=== PATIENT | male | born 1935 | race Caucasian/White ===

== ENCOUNTER 2018-08-27 12:14 | Day surgery (SDC) | payer MEDICARE, MEDICAID ==
[~2018-08-27] VITALS: Ht 170.2 cm; Wt 80.0 kg
[2018-08-27] MEDS ORDERED: LACTATED RINGERS 1,000 ML IV SCH (12:58)
[2018-08-27] MEDS ORDERED: RIVA10TA2 PO (13:07)
[2018-08-27] MEDS ORDERED: METROPOLOL PO (13:07)
[2018-08-27] MEDS ORDERED: FERR324T5 PO (13:07)
[2018-08-27] MEDS ORDERED: ATOR20TA86 PO (13:07)
[2018-08-27] MEDS ORDERED: TAMS-11 PO (13:07)
[2018-08-27] MEDS ORDERED: AMLO10TA8 PO (13:07)
[2018-08-27] MEDS ORDERED: B12/1TAB3 PO (13:07)
[2018-08-27] MEDS ORDERED: LOSA100T14 PO (13:07)
[2018-08-27 13:08] VITALS: BP 135/72
[2018-08-27 13:44] LABS: ANION GAP 9 mmol/L (5-15); CALCIUM 8.3 mg/dL (8.5-10.1); CHLORIDE 109 mmol/L (98-107); CREATININE 1.03 mg/dL (0.7-1.3)
[2018-08-27 13:52] LABS: MEAN CORPUSCULAR HEMOGLOBIN 20.3 pg (27.5-34.5); MEAN CORPUSCULAR VOLUME 68.3 fL (81-97); MEAN PLATELET VOLUME 8.9 fL (7.4-10.4); PLATELET COUNT 171 x10^3/uL (130-400); RED BLOOD COUNT 4.08 x10^6/uL (4.38-5.82); RED CELL DISTRIBUTION WIDTH 26.7 % (9.4-14.8)
[2018-08-27 13:56] LABS: MEAN CORPUSCULAR HGB CONC 29.8 g/dL (33.2-36.2)
[2018-08-27 13:58] LABS: BASOPHILS # (AUTO) 0.02 x10^3/uL (0-0.1); BASOPHILS % (AUTO) 0 % (0-1); EOSINOPHILS # (AUTO) 0.41 x10^3/uL (0-0.4); EOSINOPHILS % (AUTO) 6 % (1-7); LYMPHOCYTES # (AUTO) 1.04 x10^3/uL (1-3.4); LYMPHOCYTES % (AUTO) 16 % (22-44); MD MORPH REVIEW ONLY; MONOCYTES # (AUTO) 0.67 x10^3/uL (0.2-0.8); MONOCYTES % (AUTO) 10 % (2-9); NEUTROPHILS # (AUTO) 4.43 x10^3/uL (1.8-6.8); NEUTROPHILS % (AUTO) 67 % (42-75)
[2018-08-27 14:00] LABS: ANISOCYTOSIS 1+; HYPOCHROMIA 1+; MICROCYTOSIS 1+
[2018-08-27 14:02] LABS: OVALOCYTES 1+; STOMATOCYTES 1+
[2018-08-27 14:03] LABS: <PLATELET ESTIMATE> ADEQUATE; LARGE PLATELETS 1+
[2018-08-27] MEDS ORDERED: PROPOFOL 10 MG/ML, 20ML ONE (15:10)
[2018-08-27] MEDS ORDERED: hydrALAzine 20 MG/ML, 1ML IV PRN (15:30)
[2018-08-27] MEDS ORDERED: LABETALOL 5MG/ML, 20ML IV PRN (15:30)
[2018-08-27] MEDS ORDERED: METOPROLOL 1 MG/ML, 5ML IV PRN (15:30)
[2018-08-27] MEDS ORDERED: FENTANYL PF 100 MCG/2ML IV PRN (15:30)
[2018-08-27] MEDS ORDERED: ONDANSETRON 2MG/ML, 2ML IV PRN (15:30)
== END 2018-08-27 17:30 | disposition home or self-care (01) ==
LOC: OUT 12:14
PROVIDERS: ATTEND Internal Medicine Geriatric Medicine
DX: K31.89 Other diseases of stomach and duodenum (principal); I10 Essential (primary) hypertension; I48.0 Paroxysmal atrial fibrillation; E78.5 Hyperlipidemia, unspecified; Z79.01 Long term (current) use of anticoagulants; Z79.899 Other long term (current) drug therapy; Z90.79 Acquired absence of other genital organ(s)
CPT/HCPCS: 36415; 43259; 80048; 85025; 93005; J2704; J7120

== ENCOUNTER 2018-09-10 06:03 | Day surgery (SDC) | payer MEDICARE, MEDICAID ==
[~2018-09-10] VITALS: Ht 167.6 cm; Wt 81.0 kg
[~2018-09-10 06:03] MED LIST: AMLO10TA8 PO; ATOR20TA86 PO; B12/1TAB3 PO; FERR324T5 PO; LOSA100T14 PO; METROPOLOL PO; RIVA10TA2 PO; TAMS-11 PO
[2018-09-10] MEDS ORDERED: CYAN50004 PO (06:49)
[2018-09-10] MEDS ORDERED: ATOR20TA37 PO (06:49)
[2018-09-10] MEDS ORDERED: AMLO-150 PO ×2 (06:49→06:59)
[2018-09-10] MEDS ORDERED: LOSA100T14 PO (06:49)
[2018-09-10] MEDS ORDERED: LACTATED RINGERS 1,000 ML IV SCH (06:49)
[2018-09-10] MEDS ORDERED: PANT40TA5 PO (06:49)
[2018-09-10 06:52] VITALS: BP 153/67
[2018-09-10] MEDS ORDERED: TAMS-11 PO (06:59)
[2018-09-10] MEDS ORDERED: FERR-46 PO (06:59)
[2018-09-10] MEDS ORDERED: RIVA20TA PO (06:59)
[2018-09-10] MEDS ORDERED: METO25TA35 PO (06:59)
[2018-09-10] MEDS ORDERED: EPINEPHRINE SYRINGE 0.1 MG/ML, 10ML ONE (07:36)
[2018-09-10] MEDS ORDERED: PROPOFOL 50 ML ONE (07:40)
[2018-09-10] MEDS ORDERED: PROPOFOL 10 MG/ML, 20ML ONE (08:10)
[2018-09-10] MEDS ORDERED: LIDOCAINE-MPF 2% ,5ML ONE (08:10)
[2018-09-10] MEDS ORDERED: ONDANSETRON ODT 8 MG PO PRN (08:30)
[2018-09-10] MEDS ORDERED: ONDANSETRON 2MG/ML, 2ML IV PRN (08:30)
[2018-09-10] MEDS ORDERED: ACETAMINOPHEN 325 MG TABLET PO PRN (08:30)
[2018-09-10] MEDS ORDERED: FENTANYL PF 100 MCG/2ML IV PRN (08:30)
[2018-09-10] MEDS ORDERED: OXYcodone 5 MG/5 ML ORAL.SOL UDC PO PRN (08:30)
[2018-09-10] MEDS ORDERED: PROMETHAZINE 25 MG/ML, 1ML IV PRN (08:30)
== END 2018-09-10 10:05 | disposition home or self-care (01) ==
LOC: OUT 06:03
PROVIDERS: ATTEND Internal Medicine Geriatric Medicine
DX: C15.5 Malignant neoplasm of lower third of esophagus (principal); K31.89 Other diseases of stomach and duodenum; I10 Essential (primary) hypertension; E78.5 Hyperlipidemia, unspecified; E11.9 Type 2 diabetes mellitus without complications; Z79.84 Long term (current) use of oral hypoglycemic drugs
CPT/HCPCS: 43254; 88305; J2704; J7120